=== PATIENT | female | born 1995 | race Caucasian/White ===

== ENCOUNTER 2024-09-24 12:45 | Emergency (ER) | payer MEDICAID, OTHER ==
[~2024-09-24] VITALS: Ht 170.2 cm; Wt 74.8 kg
[2024-09-24 13:23] LABS: APPEARANCE,URINE CLEAR (CLEAR); BILIRUBIN,URINE NEGATIVE (NEGATIVE); BLOOD, URINE TRACE-INTA Ery/uL (NEGATIVE); COLOR,URINE YELLOW (YELLOW); KETONES,URINE NEGATIVE (NEGATIVE); LEUKOCYTE ESTERASE ,URINE NEGATIVE (NEGATIVE); NITRITE, URINE NEGATIVE (NEGATIVE); PROTEIN,URINE NEGATIVE (NEGATIVE); UGLUCOSE NEGATIVE (NEGATIVE); UROBILINOGEN,URINE 0.2 EU/dL (0.2)
[2024-09-24] MEDS: IV NS 0.9% 1,000 ML BAG IV ONE (13:30)
[2024-09-24 13:35] LABS: BACTERIA,URINE Few /HPF (None Seen); MUCUS,URINE Few /LPF (None Seen); SQUAMOUS EPITHELIAL CELL,UR Few /HPF (None Seen); URINE AMORPHOUS URATE Few /HPF (None Seen)
[2024-09-24 13:36] LABS: ADD URINE CULTURE NO; RBC,URINE 0-2 /HPF (0-2); WBC,URINE 0-2 /HPF (0-3)
[2024-09-24] MEDS: ONDANSETRON HCL/PF 4 MG/2 ML VIAL IV ONE (13:41)
[2024-09-24 13:44] LABS: PREGNANCY TEST URINE QUAL NEGATIVE (NEGATIVE)
[2024-09-24 14:09] LABS: BASOPHILS % (AUTO) 0.2 % (0.0-2.0); EOSINOPHILS # (AUTO) 0.1 K/uL (0.0-0.7); EOSINOPHILS % (AUTO) 1.6 % (0.0-6.0); HEMATOCRIT 36 % (33-45); HEMOGLOBIN 12.2 g/dL (11.5-14.8); LYMPHOCYTES # (AUTO) 1.8 K/uL (0.8-4.8); LYMPHOCYTES % (AUTO) 33.4 % (20.0-44.0); MEAN CORPUSCULAR HEMOGLOBIN 31 PG (26.0-33.0); MEAN CORPUSCULAR HGB CONC 34 g/dl (31.0-36.0); MEAN CORPUSCULAR VOLUME 91 fL (82-100); MONOCYTES # (AUTO) 0.3 K/uL (0.1-1.30); MONOCYTES % (AUTO) 5.5 % (2.0-12.0); NEUTROPHILS # (AUTO) 3.2 K/uL (1.8-8.9); NEUTROPHILS % (AUTO) 59.3 % (43.0-81.0); PLATELET COUNT (AUTO) 135 K/uL (150-450); RED BLOOD CELL COUNT(AUTO) 3.98 MIL/uL (4.0-5.2); RED CELL DISTRIBUTION WIDTH 13.2 % (11.5-15.0); WHITE BLOOD COUNT (AUTO) 5.3 K/uL (4.3-11.0)
[2024-09-24 14:21] LABS: ALBUMIN 4.2 g/dL (3.4-5.0); BILIRUBIN,DIRECT 0.2 mg/dL (0.0-0.2); BILIRUBIN,TOTAL 0.6 mg/dL (0.2-1.0); CALCIUM, SERUM 8.9 mg/dL (8.5-10.1); CREATININE 0.7 mg/dL (0.6-1.3); POTASSIUM 3.4 mmol/L (3.5-5.1); TOTAL PROTEIN, SERUM 7.3 g/dL (6.4-8.2)
[2024-09-24] MEDS ORDERED: IBUP-1955 PO (14:47)
[2024-09-24] MEDS ORDERED: KETOROLAC TROMETHAMINE 15 MG/ML VIAL ONE (14:55)
[2024-09-24] MEDS: KETOROLAC TROMETHAMINE 15 MG/ML VIAL IV ONE (15:05)
[2024-09-24 15:12] VITALS: BP 110/66; TEMP 98.6; O2SAT 98
== END 2024-09-24 15:13 | disposition home or self-care (01) ==
LOC: ER 13:02
DX: R10.12 Left upper quadrant pain (principal); R11.0 Nausea; F32.A Depression, unspecified
CPT/HCPCS: 99285; 74176; 96374; 76856; 96361; 85025; 80048; 83690; 80076; 84703; 81001; 36415; J7030; A4223; J1885